=== PATIENT | male | born 1985 | race Caucasian/White ===

== ENCOUNTER 2024-07-20 23:44 | Emergency (ER) | payer SELFPAY ==
[~2024-07-20] VITALS: Ht 162.6 cm; Wt 63.0 kg
[2024-07-20 23:51] VITALS: TEMP 98.2; O2SAT 99
[2024-07-21] MEDS ORDERED: KETOROLAC 30MG/ML VIAL IM ONE (00:15)
[2024-07-21] MEDS: KETOROLAC 15MG/ML VIAL IV ONE (00:18)
[2024-07-21] MEDS ORDERED: IBUP-2028 MT (01:31)
[2024-07-21] MEDS ORDERED: HYDR-4001 MT (01:31)
[2024-07-21 01:56] VITALS: BP 123/83; PULSE 95; RESP 15; O2SAT 98
== END 2024-07-21 01:58 | disposition home or self-care (01) ==
LOC: ER 23:44
DX: S52.202A Unspecified fracture of shaft of left ulna, initial encounter for closed fracture (principal); S23.41XA Sprain of ribs, initial encounter; V49.49XA Driver injured in collision with other motor vehicles in traffic accident, initial encounter; Y93.89 Activity, other specified; Y92.89 Other specified places as the place of occurrence of the external cause; Y99.8 Other external cause status
CPT/HCPCS: 29105; 99284; 71101; 73080; 73090; 73110; 96374; J1885; Z7610; 29505; A4565